=== PATIENT | male | born 1980 | race Caucasian/White ===

== ENCOUNTER 2018-03-17 15:31 | Emergency (ER) | payer BC, OTHER ==
[2018-03-17] MEDS ORDERED: Morphine 4 MG/ML VIAL ONE (15:56)
[2018-03-17] MEDS ORDERED: Ondansetron HCl/PF 4 MG/2 ML Vial ONE (15:56)
--- NOTE | 2018-03-17 16:44 | ULT ---
SCROTAL ULTRASOUND WITH DUPLEX EVALUATION: History: Left testicular pain and swelling. FINDINGS: Right testicle is 4.5 cm and has a normal appearance with good color and spectral doppler flow. Small epididymal head cysts. Left testicle measures up to 5.5 cm and is hypoechoic compared to the left. Good color and spectral d oppler flow. Somewhat hyperemic. Epididymis is also enlarged. Thickening of the left scrotal skin. Fl uid within the left side of the scrotum. Left epididymal head cyst measures up to 1.1 cm. IMPRESSION: Left epididymo-orchitis with hydrocele. POS: YESICA
[2018-03-17] MEDS ORDERED: cefTRIAXone\\ROCEPHIN 250 MG VIAL ONE (17:06)
[2018-03-17] MEDS ORDERED: Lidocaine 1% PF 5 ML VIAL ONE (17:06)
== END 2018-03-17 17:45 | disposition home or self-care (01) ==
LOC: ERS 15:31
DX: N45.3 Epididymo-orchitis (principal); N43.3 Hydrocele, unspecified; F17.290 Nicotine dependence, other tobacco product, uncomplicated
CPT/HCPCS: 76870; 93976; 96372; 96374; 96375; J0696; J2001; J2270; J2405